=== PATIENT | male | born 1985 | race Two or more races ===

== ENCOUNTER 2018-06-24 14:57 | Outpatient (CLI) | payer BC ==
--- NOTE | 2018-06-24 16:26 | Diagnostic Imaging Report ---
Indication: Abdominal pain Technique: Multiplanar grayscale and color Doppler imaging of the abdomen Comparison: None Findings: Focused imaging was performed through the right lower quadrant. No definite abnormality is identified. The appendix however is not identified and therefore the presence or absence of appendiceal pathology cannot entirely be excluded. No reported tenderness upon palpation of the right lower quadrant. Imaged portions of the pancreatic head are unremarkable in appearance. The body and tail are not visualized. Liver is normal in size. Hepatic contour is smooth. Hepatic echogenicity within normal limits. No focal hepatic mass lesion appreciated sonographically. Imaged hepatic veins appear patent. The main portal vein is patent with normal direction of flow. No cholelithiasis or gallbladder sludge identified. No gallbladder wall thickening or pericholecystic fluid. Sonographic Magallanes sign reported as negative. No intrahepatic biliary ductal dilatation. Common bile duct normal in caliber. Kidneys demonstrate normal echogenicity. A punctate echogenic focus in the left kidney measures up to 5 mm and may represent a focus of prominent sinus fat or tiny angiomyolipoma. Subcentimeter stones are less likely given lack of shadowing. There is no evidence of hydronephrosis bilaterally. Subcentimeter simple appearing cysts noted in the left kidney. Normal color flow is seen to the bilateral kidneys. Spleen is normal in size and appearance. Imaged portions of the abdominal aorta normal in caliber. No ascites identified. IMPRESSION: No sonographic evidence of acute intra-abdominal pathology. Appendix not identified. As such the presence or absence of appendiceal pathology cannot be excluded. Correlate clinically. Further imaging with CT of the abdomen and pelvis with IV and oral contrast can be obtained as clinically indicated.
== END 2018-06-24 16:57 | disposition home or self-care (01) ==
LOC: RAD 14:57
DX: R10.31 Right lower quadrant pain (principal)
CPT/HCPCS: 76700